=== PATIENT | female | born 1950 | race Hispanic/Latino ===

== ENCOUNTER 2020-01-17 07:53 | Emergency (ER) | payer OTHER | END 2020-01-17 09:19 | disposition home or self-care (01) | LOC: EDH 07:53 | DX: J02.9 Acute pharyngitis, unspecified (principal); H92.02 Otalgia, left ear; I10 Essential (primary) hypertension; Z90.49 Acquired absence of other specified parts of digestive tract; Z90.710 Acquired absence of both cervix and uterus; Z87.891 Personal history of nicotine dependence; Z91.018 Allergy to other foods | CPT/HCPCS: 87880; 99281 ==

== ENCOUNTER → 2020-08-22 | Outpatient (CLI) | payer OTHER | END | disposition home or self-care (01) | LOC: RAH 07-13 10:19 | PROVIDERS: ATTEND Family Medicine | DX: Z12.31 Encounter for screening mammogram for malignant neoplasm of breast (principal) | CPT/HCPCS: 77067 ==

== ENCOUNTER → 2024-03-10 | Outpatient (CLI) | payer OTHER | END | disposition home or self-care (01) | LOC: OIH 15:11 | PROVIDERS: ATTEND Family Medicine | DX: Z13.6 Encounter for screening for cardiovascular disorders (principal) | CPT/HCPCS: 75571 ==

== ENCOUNTER 2024-12-24 04:42 | Emergency (ER) | payer MEDICARE, OTHER ==
[~2024-12-24] VITALS: Ht 157.5 cm; Wt 107.5 kg
--- NOTE | 2024-12-24 05:03 | ERN ---
General Chief Complaint: Nosebleed Stated Complaint: C/O NOSEBLEED Time Seen by MD: 04:49 Source: patient History of Present Illness Initial Comments Patient is a 74-year-old female coming in to be evaluated for bloody nose per patient started earlier today. In his she was concerned she has has a coming to be evaluated but she also states that upon arriving in triage that her bleeding has stopped. Allergies: Coded Allergies: No Known Allergies (Unverified Allergy, Unknown, 12/24/24) Home Meds Active Scripts Sodium Chloride ([place] Saline) 0.65 % Drops, 2 DROP NS Q2HPRN PRN for congestion, #50 ML 0 Refills Prov:LOIDA VASQUEZ MD 12/24/24 Past Medical History Past Medical History: Hypertension Past Surgical History: Hysterectomy, Cholecystectomy Results Laboratory and Microbiology Labs Reviewed?: Yes MDM MDM: Differential diagnosis: Epistaxis, nosebleed, Patient is a 74-year-old female coming in to be evaluated for bloody nose present upon evaluation in triage patient states that the bleeding had stopped. Afrin was applied good observation no bleeding observed. Patient will be discharged with a diagnosis with the epistaxis. I advised her appropriate follow up with PCP in 1-2 days. ED Course Orders Procedure Category Date Status Time Oxymetazolone Hcl PHA 12/24/24 Complete [place] (Afrin) 04:50 Clonidine Hcl 0.1 Mg PHA 12/24/24 Complete Tablet ([place] 0. 05:27 Current Medications Medications (Trade) Dose Ordered Sig/Bhakti Route PRN Reason Start Time Stop Time Status Last Admin Dose Admin Clonidine HCl (CATApres 0.1 mg TAB) 0.1 mg BID STAT PO 12/24/24 05:27 12/24/24 05:28 DC 12/24/24 05:39 Oxymetazoline HCl (AFrin) 2 sprays ONCE STAT EN 12/24/24 04:50 12/24/24 04:51 DC 12/24/24 05:09 Vital Signs Date Time Temp Pulse Resp B/P (MAP) Pulse Ox O2 Delivery O2 Flow Rate FiO2 12/24/24 05:56 97.2 53 17 178/69 98 Room Air* 0 21 12/24/24 05:39 53 182/90 12/24/24 05:26 97.5 53 17 182/90 98 Room Air* 0 21 12/24/24 04:44 97.3 61 20 191/80 96 Room Air DX & DISP Disposition: Discharge Departure Impression: Primary Impression: Epistaxis Condition: Stable Scripts Sodium Chloride ([place] Saline) 0.65 % Drops 2 DROP NS Q2HPRN PRN for congestion, #50 ML 0 Refills Prov: LOIDA VASQUEZ MD 12/24/24 Additional Instructions: FOLLOW-UP WITH PRIMARY CARE PROVIDER IN 1 TO 2 DAYS. TAKE MEDICATIONS DIRECTED HERE IN THE EMERGENCY ROOM. OKAY TO CONTINUE HOME MEDICATIONS UNLESS OTHERWISE DISCUSSED DURING YOUR VISIT IN THE EMERGENCY ROOM TODAY. RETURN TO YOUR NEAREST EMERGENCY ROOM IF SYMPTOMS WORSEN OR IF THERE IS NO IMPROVEMENT. CALL 911 IF YOU NEED IMMEDIATE ASSISTANCE. TAKE TYLENOL [id number] NEEDED AND IF NO CONTRAINDICATIONS ARE PRESENT. INCREASE ORAL HYDRATION. A WOUND CULTURE OR URINE CULTURE WAS ORDERED HERE IN THE EMERGENCY ROOM DEPARTMENT PLEASE FOLLOW-UP WITH PRIMARY CARE PROVIDER AND ADVISE THEM TO GET REPEAT PORTS FROM OUR FACILITY. IF YOU HAD ANY SHERRIE WRAP/SPLINTS THAT WERE APPLIED HERE, PLEASE DO NOT REMOVE THEM UNTIL YOU SEE YOUR PRIMARY CARE OR SPECIALTY. Referrals: Referrals: BEHZAD PEREZ MD (PCP) Time of Disposition: 05:14 LOIDA VASQUEZ MD Dec 24, 2024 05:03
[2024-12-24] MEDS: OXYmetazolone HCL SPRAY 15 ML BOTTLE EN STA (05:09)
[2024-12-24] MEDS ORDERED: SODI50DR NS (05:15)
[2024-12-24] MEDS: cloNIDine HCL 0.1 MG TABLET PO STA (05:39)
[2024-12-24 05:56] VITALS: BP 178/69; PULSE 53; RESP 17; TEMP 97.2; O2SAT 98
== END 2024-12-24 05:29 | disposition home or self-care (01) ==
LOC: EDH 04:42
DX: R04.0 Epistaxis (principal); I10 Essential (primary) hypertension; Z90.49 Acquired absence of other specified parts of digestive tract; Z90.710 Acquired absence of both cervix and uterus
CPT/HCPCS: 99283

== ENCOUNTER → 2025-01-01 | Outpatient (CLI) | payer MEDICARE ==
[~2025-01-01] MED LIST: SODI50DR NS
[2025-01-01 12:16] LABS: BASOPHILS # (AUTO) 0.05 K/uL (0.00-0.20); BASOPHILS % (AUTO) 0.3 % (0.0-5.0); EOSINOPHILS # (AUTO) 0.11 K/uL (0.00-0.70); EOSINOPHILS % (AUTO) 0.7 % (0.0-8.0); HEMATOCRIT 39.1 % (36-48); IMMATURE GRANULOCYTE ABSOLUTE 0.09 K/uL (0-1); LYMPHOCYTES # (AUTO) 2.2 K/uL (1.0-4.8); LYMPHOCYTES % (AUTO) 14.5 % (21.0-51.0); MEAN CORPUSCULAR HEMOGLOBIN 28.2 pg (27.0-33.0); MEAN CORPUSCULAR VOLUME 88.3 fL (79-99); MONOCYTES # (AUTO) 1.6 K/uL (0.1-1.0); MONOCYTES % (AUTO) 10.5 % (3.0-13.0); NEUTROPHILS # (AUTO) 10.9 K/uL (1.8-7.7); NEUTROPHILS % (AUTO) 73.4 % (40.0-77.0); PLATELET COUNT (AUTO) 269 K/uL (130-400); RED BLOOD CELL COUNT(AUTO) 4.43 MIL/uL (4.00-5.50); RED CELL DISTRIBUTION WIDTH 14.8 % (11.0-15.5); WHITE BLOOD COUNT (AUTO) 14.9 K/uL (4.8-10.8)
[2025-01-01 12:25] LABS: CREATININE 2.1 mg/dL (0.5-1.0); POTASSIUM 4.3 mmol/L (3.5-5.1)
[2025-01-01 12:31] LABS: INR 0.98 (0.85-1.15)
[2025-01-01 12:33] LABS: PARTIAL THROMBOPLASTIN TIME 24.2 SEC (26.3-35.5)
== END | disposition home or self-care (01) ==
LOC: LAB 08:34
PROVIDERS: ATTEND Internal Medicine Cardiovascular Disease
DX: I87.2 Venous insufficiency (chronic) (peripheral) (principal); I87.1 Compression of vein; M79.605 Pain in left leg
CPT/HCPCS: 36415; 80048; 85025; 85610; 85730